=== PATIENT | female | born 1965 | race Caucasian/White ===

== ENCOUNTER 2021-03-18 19:15 | Emergency (ER) | payer OTHER ==
[~2021-03-18 19:15] MED LIST: ACIPHEX20 MG PO; ADALAT CC30 MG PO; ADALAT CC60 MG PO; ADVAIR 250-501 EACH INH; CRESTOR5 MG PO
[2021-03-18] MEDS ORDERED: EPIPEN 2-P0.3 MG/0.3 SC (20:40)
== END 2021-03-18 21:12 | disposition home or self-care (01) ==
LOC: FER 19:15
DX: T63.441A Toxic effect of venom of bees, accidental (unintentional), initial encounter (principal); I10 Essential (primary) hypertension; J45.909 Unspecified asthma, uncomplicated; Z88.1 Allergy status to other antibiotic agents; Z79.899 Other long term (current) drug therapy
CPT/HCPCS: 99282; J3410